=== PATIENT | male | born 1940 | race Caucasian/White ===

== ENCOUNTER 2022-08-12 07:25 | Day surgery (SDC) | payer MEDICARE, SELFPAY ==
[2022-08-12] MEDS: Lidocaine 1% (5 ml sdv) 5 ML Vial (07:32)
[2022-08-12 08:02] VITALS: BP 157/88; PULSE 47; RESP 16; TEMP 36.6; O2SAT 98; BMI 31.8
[2022-08-12] MEDS: Lactated Ringers 1,000 ML 15 ML IV (08:06)
[2022-08-12 08:25] LABS: Bedside Glucose 115 mg/dL (74-106)
--- NOTE | 2022-08-12 08:30 | RAD_ITS ---
STUDY: MEDIAL BRANCH NERVE BLOCK. REASON FOR EXAM: Male, 81 years old. MEDIAL BRANCH NERVE BLOCK, L4-S1,LEFT FLUOROSCOPY TIME (if supplied): ( 11.9 seconds ) minutes/seconds. 3.9 mGy. 4 spot images were obtained. RAD/Lumbar Spine 2 or 3 Views IMPRESSION: Intraoperative imaging provided for left L4-S1 medial branch nerve block. Electronically Signed: Benjamin Mcneil MD at 15:42 EDT ,
[2022-08-12] MEDS: MethylPREDNISolone Acetate 80 MG/ML Vial (08:38)
--- NOTE | 2022-08-12 08:40 | PCM.OPRPT ---
Report of Operation Date of Procedure: 08/12/22 Description of Surgical Findings:: PREOPERATIVE DIAGNOSIS: Lumbosacral spondylosis, lumbosacral degenerative disc disease, lumbar facet arthropathy POSTOPERATIVE DIAGNOSIS: Lumbosacral spondylosis, lumbosacral degenerative disc disease, lumbar facet arthropathy PROCEDURE PERFORMED: Left-sided lumbar medial branch block at L4, L5, and S1. ANESTHESIA: MAC. BLOOD LOSS: Minimal. COMPLICATIONS: None. DESCRIPTION OF PROCEDURE: History and physical of today was reviewed. Risks and benefits of the procedure were explained. The patient understood and agreed to proceed. Informed consent was obtained. IV inserted per routine protocol. The patient was taken to the operating room and placed in the prone position with a pillow positioned underneath the abdomen. The left side of her lower back was prepped and draped in a sterile fashion using iodine x3. Under fluoroscopy on oblique view, the L3 through S1 vertebral bodies were visualized. The skin and subcutaneous tissue was anesthetized with approximately 5 mL of 1% lidocaine using a 25-gauge regular needle. Under direct visualization with fluoroscopy, at approximately 25-degree angle starting on the left L3, ending on the left S1, passing through the L4 and L5, using a 22-gauge 3-1/2-inch spinal needle, the needle was advanced via the skin. The tip of the needle was maneuvered and directed towards the superior medial gutter of the transverse process at the vicinity of the medial branch. Once tip of the needle was in contact with the bone, the needle was pulled approximately 2 mm off the bone. After negative aspiration of blood or CSF and confirmation on AP as well as oblique view, a total of 8 mL of preservative-free 0.25% Marcaine with 80 mg of Depo-Medrol was injected in divided doses between those four levels. The needles were then removed intact. The patient experienced no sign or symptoms of intrathecal or intravascular injection. The patient experienced no paresthesia. The procedure was completed without any apparent difficulty or any complications. The patient appeared to tolerate it well. ASSESSMENT AND PLAN: This is an 81-year-old male with lumbosacral spondylosis, lumbosacral degenerative disc disease, lumbar facet arthropathy status post left-sided lumbar medial branch block at L4-S1, patient will continue his current medications, patient will follow in approximately 2 weeks for reevaluation.
[2022-08-12 08:45] VITALS: BP 125/65; BP 157/88; PULSE 53; RESP 18; TEMP 36.4; O2SAT 98
[2022-08-12 08:50] VITALS: BP 128/69; BP 157/88; PULSE 50; RESP 18; O2SAT 98
[2022-08-12 08:55] VITALS: BP 135/70; BP 157/88; PULSE 50; RESP 16; O2SAT 97
[2022-08-12 08:59] VITALS: BP 137/74; BP 157/88; PULSE 51; RESP 16; TEMP 36.4; O2SAT 98
[2022-08-12 09:13] VITALS: BP 157/88
== END 2022-08-12 09:32 | disposition home or self-care (01) ==
LOC: SDC 07:27 → AC 07:28
PROVIDERS: PCP Internal Medicine Adolescent Medicine; Referring Provider Anesthesiology Pain Medicine; Visit Provider Anesthesiology Pain Medicine
PROC: 3E0S3BZ Introduction of Anesthetic Agent into Epidural Space, Percutaneous Approach (ICD-10-PCS; CPT 62322; principal; 2022-08-12 08:25)
DX: M47.816 Spondylosis without myelopathy or radiculopathy, lumbar region (principal); E11.9 Type 2 diabetes mellitus without complications; M47.817 Spondylosis without myelopathy or radiculopathy, lumbosacral region; M51.37 Other intervertebral disc degeneration, lumbosacral region; I10 Essential (primary) hypertension; K21.9 Gastro-esophageal reflux disease without esophagitis; Z79.82 Long term (current) use of aspirin; Z79.84 Long term (current) use of oral hypoglycemic drugs; Z79.899 Other long term (current) drug therapy
CPT/HCPCS: 64493; 64494; 01992; 64483; 72100; 82962; J7120

== ENCOUNTER 2022-10-28 07:53 | Day surgery (SDC) | payer MEDICARE, SELFPAY ==
[2022-10-28] MEDS: Lactated Ringers 1,000 ML 15 ML IV (08:26)
[2022-10-28 08:27] VITALS: BP 134/62; PULSE 44; RESP 18; TEMP 36.2; O2SAT 99; BMI 31.4
[2022-10-28 08:52] LABS: Bedside Glucose 119 mg/dL (74-106)
--- NOTE | 2022-10-28 09:13 | RAD_ITS ---
PROCEDURE: Lumbar radiofrequency ablations. DATE OF EXAMINATION: October 28, 2022 INDICATION: Male, 81 years old. Chronic back pain. FLUOROSCOPY TIME (if supplied): 30 seconds. 9 images are submitted RAD/Lumbar Spine 2 or 3 Views IMPRESSION: Intraoperative images are provided for radiofrequency ablations on the left at L2-3, L3-4, L4-5, and L5-S1. Electronically Signed: Shivam Balderas MD at 12:41 EDT Reading Location ID and State: [id number] / Unknown , Service support ,
[2022-10-28] MEDS: Lidocaine 1% (20 ml mdv) 20 ML Vial (09:19)
[2022-10-28] MEDS: MethylPREDNISolone Acetate 40 MG/ML Vial IM (09:19)
--- NOTE | 2022-10-28 09:35 | PCM.OPRPT ---
Report of Operation Date of Procedure: 10/28/22 Pre-Operative Diagnosis: Lumbosacral spondylosis, lumbosacral degenerative disc disease, lumbar facet arthropathy Post-Operative Diagnosis: Lumbosacral spondylosis, lumbosacral degenerative disc disease, lumbar facet arthropathy Surgery/Procedure Performed:: Left-sided lumbar radiofrequency ablation of the medial branch L4, L5, S1 Type of Anesthesia: MAC Estimated Blood Loss (mL): Minimal Description of Procedure: History and physical today was reviewed. Risks and benefits of procedure explained. The patient understood, agreed to the procedure and informed consent was obtained. IV inserted per routine protocol. The patient was taken to the operating room, placed in the prone position with a pillow positioned underneath the abdomen. The left side of the lower back was prepped and draped in a sterile fashion using iodine x 3. Under fluoroscopy guidance, on an oblique view, the L3 through S1 vertebral bodies were visualized. The skin and subcutaneous tissue was anesthetized with approximately 10 mL of 1% lidocaine using a 25-gauge regular needle. Under direct visualization with fluoroscopy at approximately 25-degree angle, starting on the left L3, ending on the left S1 passing through the L4-L5 using a 20-gauge 15 cm with a 10 mm curved active tip radiofrequency ablation needle the needle passed through the skin. The tip of the needle was maneuvered and directed towards the superior and medial gutter of the transverse process at the vicinity of the medial branch. Once the tip of the needle was in contact with the bone, the needle pulled approximately 2 mm up the bone. The stylet of each needle was then removed. After negative aspiration of blood with CSF and confirmation of AP as well as oblique view, radiofrequency ablation probe was then inserted at each level. Impedance was then recorded at L3 to be 235, at L4 238, at L5 276, at S1 305 ohm. Motor-evoked potential was then initiated to 1.5 volt without any motor response at each corresponding level. The probe was then removed intact and a total of 6 mL preservative-free 1% lidocaine was injected in divided doses between those 4 levels after negative aspiration of blood with CSF. The radiofrequency ablation probe was then reinserted after confirmation of AP, oblique as well as lateral view. Radiofrequency ablation was then initiated to 80 degrees Celsius for 90 seconds at each level. Once concluded, the probe was then removed intact and a total of 6 mL of preservative-free 0.25% Marcaine with 40 mg Depo-Medrol was injected in divided doses between those 4 levels. The needles were then removed intact. The patient experienced no signs or symptoms of intrathecal, intravascular injection. The patient experienced no paraesthesia. The procedure was completed without any apparent difficulty, any complication. The patient appeared to tolerate well. Sensory as well as motor exam was unchanged from prior to procedure. ASSESSMENT AND PLAN: This is an 81-year-old male with lumbosacral spondylosis, lumbosacral degenerative disc disease, lumbar facet arthropathy, status post left-sided lumbar radiofrequency ablation of the medial branch L4 through S1. The patient will continue his current medications. The patient will follow up in approximately 2 weeks for reevaluation. Complications None
[2022-10-28 09:36] VITALS: BP 134/62; BP 136/67; PULSE 48; RESP 18; TEMP 36.4; O2SAT 99
[2022-10-28 09:40] VITALS: BP 134/62; BP 153/69; PULSE 50; RESP 18; O2SAT 99
[2022-10-28 09:45] VITALS: BP 134/62; BP 138/73; PULSE 47; RESP 18; O2SAT 99
[2022-10-28 09:51] VITALS: BP 134/62; BP 151/72; PULSE 48; RESP 18; TEMP 36.7; O2SAT 98
[2022-10-28 10:07] VITALS: BP 134/62
--- NOTE | 2022-11-25 16:18 | PCM.HP.STD ---
HPI - General General Date of Admission: 10/28/22 Date of Service: 10/28/22 HPI Narrative Chief Complaint: 100% improvement in the left lumbar for one day History of Present Illness: This is a 81 Y/O Male who was seen and evaluated at our office today as a follow up. Pain: lower back Quality: intermittent ,varies in intensity Region: Pain in the lower back radiates across Severity: dull-intense aching Timin Aggravated by: cutting grass, walking Relieved by: tramadol Pain score (out of 10): 5/10 Other info: Patient is here for a follow up.Reports 100% improvement in the left lower back for one day with the block. Reports pain in the lower back radiates across but right side has improved,still has discomfort on the left side.Reports pain down the right leg has improved.States the pain is intermittent and varies in intensity.Needs no refill on medication. would like to discuss SCS . Review of Systems: Notes trouble balancing on occasion. Patient denies any recent fever, chills, headache, change in weight without trying, vision or hearing problems.Reports SOB on exertion. No buckley, pnd, orthopnea, or peripheral edema.They note no lumps or swollen glands, no new rashes, changing moles, or change in bowel or bladder function. Mood has been good. Past Medical History: h/o Type II Diabetes h/o hypertension h/o covid vaccine x2 h/o arthritis s/p partial left knee replacement s/p Lumbar fusion 2019 SCS implant Family History: ======== Structured Family History ======== Mother: Cancer Father: Heart disease Brother: Cancer, AIDS Social History: [Tobacco: Former smoker (0 pk yrs / 0 yrs quit) Start Date: 08/31/2020 End Date: 08/31/2020 Pipe Smoker: No Cigar Smoker: No Chewing Tobacco User: No Electronic Cigarette User: No] Living situation: Occupation: Retired Tobacco: Former EtOH: Occasional Rec. drugs: Denies Allergies: No Known Allergies Medications: 1) 12 Lead EKG 2) aspirin 81 mg oral delayed release tablet, Take 1 tablet by mouth once daily 3) carvedilol 12.5 mg oral tablet, Take 1 tablet by mouth once daily 4) cyclobenzaprine 10 mg oral tablet, 1/2 to 1 tablet PO TID prn spasms. 5) Doans Pills Extra Strength 580 mg oral tablet, Take 2 tablet by mouth once daily 6) famotidine 40 mg oral tablet, Take 1 tablet by mouth once daily 7) Fish oil 1400mg , Take 1 tablet by mouth once daily 8) gabapentin 300 mg oral capsule, Take 1 tablet by mouth 2 times a Day 9) metFORMIN 500 mg oral tablet, extended release, Take 1 tablet by mouth 2 times a Day 10) Mobic 7.5 mg oral tablet, 1 PO daily with food. 11) Multiple Vitamins oral tablet, Take 1 tablet by mouth once daily 12) naproxen 500 mg oral delayed release tablet, prn 13) omeprazole 20 mg oral delayed release tablet, Take 1 tablet by mouth once daily 14) Osteo Bi-Flex 250 mg-200 mg oral tablet, Take 1 tablet by mouth once daily 15) ramipril 5 mg oral capsule, Take 1 tablet by mouth once daily 16) snake oil spray , prn 17) tamsulosin 0.4 mg oral capsule, Take 1 tablet by mouth 2 times a Day 18) traMADol 50 mg oral tablet, 1/2 to 1 T PO TID PRN PAIN. 19) Vitamin C 500 mg oral tablet, Take 1 tablet by mouth once daily 20) Xray of the lumbar spine, 2-6 views Physical Examination: Wt: 204 lb Ht/Ln: 70 in BMI: 29.3 BP: 131/64 Pulse: 64 RR: 16 Temp: 97.1F Well nourished and well developed in no acute distress. Affect is normal and appropriate. Mucosa pink and moist. Chest is unlabored breathing, pt is alert and oriented to place, person and time, irregular heart beat. Neck is supple without significant lymphadenopathy or thyromegaly. Abdomen soft & non-tender. No HSM or masses appreciated. Extremities show no cyanosis, clubbing, or edema. Gait is Antalgic with a cane. Lumbar ROM is limited due to pain worse with extension. Lumbar paraspinal muscle tenderness worse on the left. Positive surgical scar that is well healed. Bilateral lumbar facet loading is positive worse on the left. SLR is negative on the right. ROM of the right ankle is limited due to pain. Slight right foot drop. SCS generator site is intact but tenderness on palpation. Motor and sensory exam is unchanged. Goals: Health Concerns: Assessment & Plan: # Arthralgia of sacroiliac joint (M53.3): # Sacroiliitis, not elsewhere classified (M46.1): # Degeneration of lumbosacral intervertebral disc (M51.37): # Lumbar post-laminectomy syndrome (M96.1): # Lumbosacral stenosis (M48.07): # Lumbosacral spondylosis (M47.817): # Taking multiple medications for chronic disease (Z79.899): Continue with his medications. OARRS was reviewed today. Follow up with his PCP. UDS was reviewed and was compliant. SCS adjustment today. SOAPP score is 2 MRI of the lumbar spine was reviewed again with the pt today and they appear to understand. Xray of the lumbar spine was reviewed with the pt today and they appear to understand. Life style modifications were also discussed today and the pt appears to understand. PEG was reviewed today. Pt was advised not to consume alcohol with his medications due to possible severe interaction, pt appears to understand. Weight loss was recommended today through diet and exercise. CT scan of the lumbar spine was reviewed again with the pt today and they appear to understand. There are no signs of diversion or addiction with the pt, there is also no signs of abuse or misuse, continues to do well with their medications without any side effects, we will continue monitoring the pt closely. The common side effects of the medications were discussed and all of their questions and concerns were answered and they appear to understand Discussed natural and expected course of this diagnosis and need to alert me if symptoms do not follow expected course, or if any worse. Pt is to continue with his HEP. Pt has tried multiple modalities with no success, we will schedule the pt for a left lumbar RFA L4-S1 under fluoroscopy as the pt did have 2 MBB with 100% improvement but short lived. We have discussed the risks, benefits as well as alternatives of the procedure and the patient appears to understand and would like to proceed with the above plan. The above plan was discussed today with the pt in details and they appear to understand and agrees to continue with the plan. [facility] Medical History Abrasion Alcohol use Arthritis Back pain Cardiology follow-up encounter CPAP (continuous positive airway pressure) dependence Diabetes Former smoker Gastric reflux History of edema History of irregular heartbeat History of stress test Hoarseness Hypertension Prostate disease Shortness of breath on exertion Wears dentures Wears glasses Wears hearing aid Wears partial dentures Home Medications ascorbic acid (vitamin C) 500 mg tablet (Vitamin C) 500 mg PO DAILY 08/06/22 [History Last Taken Unknown] aspirin 81 mg tablet,delayed release 81 mg PO DAILY 08/06/22 [History Last Taken 10/27/22] carvedilol 12.5 mg tablet 12.5 mg PO BID 08/06/22 [History Last Taken 10/28/22] famotidine 40 mg tablet 40 mg PO QHS 08/06/22 [History Last Taken Unknown] gabapentin 300 mg tablet 300 mg PO BID 08/06/22 [History Last Taken Unknown] metformin 500 mg tablet 500 mg PO BID 08/06/22 [History Last Taken Unknown] multivitamin (Multiple Vitamins tablet) 1 tab PO DAILY 08/06/22 [History Last Taken Unknown] naproxen 500 mg tablet 500 mg PO BID 08/06/22 [History Last Taken Unknown] omega 1-exf-gyy-fish oil 1,200 mg (144 mg-216 mg) capsule (Fish Oil) 1,400 cap PO DAILY 08/06/22 [History Last Taken Unknown] omeprazole 20 mg tablet,delayed release 20 mg PO DAILY 08/06/22 [History Last Taken 10/28/22] ramipril 5 mg capsule 5 mg PO DAILY 08/06/22 [History Last Taken 10/28/22] tamsulosin 0.4 mg capsule 0.4 mg PO QHS 08/06/22 [History Last Taken Unknown] Allergy/AdvReac Type Severity Reaction Status Date / Time No Known Allergies Allergy Verified 08/12/22 08:00 Surgical History History of brain shunt History of cardiac catheterization History of lumbar fusion Hx of repair of left rotator cuff Hx of total knee arthroplasty Social History Smoking Status: Former smoker Vital Signs Vital Signs Vital Signs: Weight Weight: 93.894 kg Body Mass Index (BMI) 31.4
== END 2022-10-28 10:47 | disposition home or self-care (01) ==
LOC: SDC 07:55 → AC 07:57
PROVIDERS: PCP Internal Medicine Adolescent Medicine; Referring Provider Anesthesiology Pain Medicine; Visit Provider Anesthesiology Pain Medicine
PROC: (CPT 64635; principal; 2022-10-28 07:15)
DX: M47.817 Spondylosis without myelopathy or radiculopathy, lumbosacral region (principal); M46.1 Sacroiliitis, not elsewhere classified; E11.9 Type 2 diabetes mellitus without complications; M47.816 Spondylosis without myelopathy or radiculopathy, lumbar region; M51.37 Other intervertebral disc degeneration, lumbosacral region; M48.07 Spinal stenosis, lumbosacral region; M96.1 Postlaminectomy syndrome, not elsewhere classified; I10 Essential (primary) hypertension; Z79.82 Long term (current) use of aspirin; Z79.84 Long term (current) use of oral hypoglycemic drugs; Z79.1 Long term (current) use of non-steroidal anti-inflammatories (NSAID); Z79.899 Other long term (current) drug therapy; Z87.891 Personal history of nicotine dependence
CPT/HCPCS: 64635; 01992; 72100; 76000; 82962; J7120